=== PATIENT | female | born 1995 | race Two or more races ===

== ENCOUNTER 2022-02-08 05:17 | Emergency (ER) | payer OTHER ==
[~2022-02-08] VITALS: Ht 152.4 cm; Wt 57.6 kg
== END 2022-02-08 13:17 | disposition home or self-care (01) ==
LOC: ER 05:17
DX: S09.90XA Unspecified injury of head, initial encounter (principal); S01.91XA Laceration without foreign body of unspecified part of head, initial encounter; M54.2 Cervicalgia; W05.2XXA Fall from non-moving motorized mobility scooter, initial encounter; Y93.9 Activity, unspecified; Y92.9 Unspecified place or not applicable; Y99.9 Unspecified external cause status